=== PATIENT | female | born 1955 | race Caucasian/White ===

== ENCOUNTER → 2016-07-16 | Outpatient (CLI) | payer BC ==
[~2016-07-16] VITALS: Ht 167.6 cm; Wt 111.6 kg
[~2016-07-16] MED LIST: CATHETER FLUSH 10 ML SYR IV PRN; ENAL1TAB19 PO; PNT40TEC PO; REGADENOSON 0.4 MG/5 ML SYR (LEXISCAN) IV ONE; SERT50TA9 PO
--- OUTSIDE RECORDS SUMMARY | 2016-07-16 07:33 | XMS REPORT | Continuity of Care Document ---
Author Author [facility] Organization [facility] Address Unknown Phone Unavailable Allergies Active Description Code Type Severity Reaction Onset Reported/Identified Relationship to Patient Clinical Status Yes No Known Drug Allergies [id number] Drug Allergy Unknown N/ A 01/12/2013 Medications Problems Date Dx Coded Attending Type Code Diagnosis Diagnosed By 01/12/2013 PRIETO GUZMAN DO Ot 455.6 HEMORRHOIDS NOS 01/12/2013 PRIETO GUZMAN DO Ot 530.81 ESOPHAGEAL REFLUX 01/12/2013 PRIETO GUZMAN DO Ot 535.50 UNSP GASTRITIS GASTRODUODENITIS W/O ME 01/12/2013 PRIETO GUZMAN DO Ot 553.3 DIAPHRAGMATIC HERNIA 01/12/2013 PRIETO GUZMAN DO Ot 578.1 BLOOD IN STOOL 01/12/2013 PRIETO GUZMAN DO Ot V16.0 FAMILY HX-GI MALIGNANCY 08/22/2015 Ot V76.12 08/22/2015 PRIETO GUZMAN DO Ot V72.84 08/22/2015 PAYTON GHOSH MD Ot V76.12 08/23/2015 JORGE JOHNSON Ot R01.1 09/04/2015 JORGE JOHNSON Ot R01.1 09/11/2015 MEMO DAVISON MD Ot Z12.31 09/25/2015 MEMO DAVISON MD Ot Z12.31 ENCNTR SCREEN MAMMOGRAM FOR MALIGNANT NE 07/14/2016 Ot V76.12 OTH SCREEN MAMMO-MALIGN NEOPLASM OF DAVID 07/14/2016 PRIETO GUZMAN DO Ot V72.84 EXAM PRE-OPERATIVE NOS 07/14/2016 PAYTON GHOSH MD Ot V76.12 OTH SCREEN MAMMO-MALIGN NEOPLASM OF DAVID 07/14/2016 JORGE JOHNSON Ot R01.1 CARDIAC MURMUR, UNSPECIFIED 07/14/2016 MEMO DAVISON MD Ot Z12.31 ENCNTR SCREEN MAMMOGRAM FOR MALIGNANT NE Procedures Results Encounters ACCT No. Visit Date/Time Discharge Status Pt. Type Provider Facility Loc./Unit Complaint [id number] 01/16/2013 09:01:00 2012 23:59:59 CLS Outpatient PAYTON GHOSH MD [facility] RAD SCREENING [id number] 01/12/2013 10:50:00 2012 14:05:00 DIS Outpatient PRIETO GUZMAN DO [facility] SDC SCREENING/DIFFICULTY SWALLOWING [id number] 01/11/2013 07:24:00 2012 23:59:59 CLS Outpatient PRIETO GUZMAN DO [facility] PREOP SCREENING/DIFFICULTY SWALLOWING [id number] 07/16/2016 07:30:00 ACT Outpatient SHAUNA HANSON FACCEVERT FACP CCDS [facility] CARD CHEST DISCOMFORT [id number] 09/10/2015 09:44:00 ACT Outpatient MEMO DAVISON MD [facility] RAD SCREENING [id number] 08/22/2015 09:19:00 ACT Outpatient JORGE JOHNSON ICU SPECIALIST [facility] CARD HEART MURMUR [id number] 05/21/2011 14:11:00 Document Registration
[2016-07-16 09:05] VITALS: BP 140/95
[2016-07-16 09:31] VITALS: BP 150/91
[2016-07-16 09:33] VITALS: BP 148/88
--- NOTE | 2016-07-17 08:20 | STRESS TEST ---
PROCEDURE PHYSICIAN: EVERT CORTEZ RESTING AND POST REGADENOSON TECHNETIUM 99M TETROFOSMIN SPECT CT IMAGING DATE OF PROCEDURE: 07/16/2016 ORDERING PHYSICIAN: Dr. Cortez PRIMARY PHYSICIAN: Dr. Khan CLINICAL DIAGNOSIS: Chest discomfort Baseline images were carried out after injection of 10.72 mCi technetium 99m tetrofosmin. This was followed by 0.4 mg of regadenoson and 29.2 mCi of technetium 99m tetrofosmin for stress imaging. The electrocardiogram showed sinus rhythm with left bundle branch block and it did not change significantly with the regadenoson infusion. The patient tolerated the procedure well. She had some shortness of breath during the procedure which resolved shortly after adenosine infusion had been given. Review of images at rest and following stress, does not indicate any significant perfusion defects consistent with myocardial ischemia or infarction. Gated images show normal global left systolic function with normal regional wall motion. Left ventricular ejection fraction is calculated to be 65%. Left ventricular end-diastolic volume is 60 mL. TID is absent (1.08). CONCLUSIONS: 1. No evidence of any significant myocardial ischemia or infarction on this study. 2. Normal regional wall motion. 3. Normal global left ventricular systolic function with a calculated ejection fraction of 65%. 4. Normal left ventricular cavity size. Job ID: [id number] Dictated Date: 07/16/2016 12:37:47 Powerhouse Engineer Date: 07/17/2016 08:14:23 / monisha
== END ==
LOC: CARD 07:30
PROVIDERS: ATTEND Internal Medicine Cardiovascular Disease
DX: I44.69 Other fascicular block (principal); I10 Essential (primary) hypertension; E78.4 Other hyperlipidemia; R07.89 Other chest pain; E66.09 Other obesity due to excess calories
CPT/HCPCS: 78452; 93017

== ENCOUNTER → 2016-10-30 | Outpatient (CLI) | payer BC ==
[~2016-10-30] MED LIST changes: -CATHETER FLUSH 10 ML SYR IV PRN; -REGADENOSON 0.4 MG/5 ML SYR (LEXISCAN) IV ONE
--- NOTE | 2016-10-30 10:44 | Diagnostic Imaging Report ---
EXAMINATION: Left lower extremity duplex venous ultrasound. TECHNIQUE: DVT protocol. Multiple sonographic images with color Doppler and waveform interrogation were performed of the left lower extremity veins with compression and augmentation maneuvers. INDICATION: Left leg redness and pain. FINDINGS: The left lower extremity veins from the groin to below the knee veins were examined with normal color-flow, compressibility and waveform demonstrated. The great saphenous vein is patent. IMPRESSION: No evidence of DVT in the left lower extremity. Dictated by: Dictated on workstation # [id number]
== END ==
LOC: RAD 10:14
PROVIDERS: ATTEND Nurse Practitioner Family
DX: M79.662 Pain in left lower leg (principal)

== ENCOUNTER → 2018-12-01 | Outpatient (CLI) | payer MEDICARE, OTHER | LOC: CARD 10:54 | PROVIDERS: ATTEND Nurse Practitioner Family | DX: R01.1 Cardiac murmur, unspecified (principal); I35.0 Nonrheumatic aortic (valve) stenosis | CPT/HCPCS: 93306 ==

== ENCOUNTER 2018-12-29 09:53 | Outpatient (CLI) | payer MEDICARE, OTHER ==
[~2018-12-29] VITALS: Ht 167.6 cm; Wt 95.3 kg
[~2018-12-29 09:53] MED LIST changes: +ATOR10TA66 PO; +CHOL100045 PO; +ENAL1TAB8 PO; +OMEP20TA7 PO; +OMG1KC PO; +SERT100T8 PO; +UBID100C17 PO
== END 2018-12-29 10:24 | disposition home or self-care (01) ==
LOC: PREOP 09:53
PROVIDERS: ATTEND Surgery
DX: Z01.818 Encounter for other preprocedural examination (principal)

== ENCOUNTER 2019-01-24 06:58 | Day surgery (SDC) | payer MEDICARE, OTHER ==
[~2019-01-24] VITALS: Ht 167.6 cm; Wt 95.3 kg
[2019-01-24] VITALS (8 sets, daily range): BP systolic 95–140; BP diastolic 58–81
[~2019-01-24 06:58] MED LIST changes: +LACTATED RINGERS 1,000 ML IV ONE
[2019-01-24] MEDS ORDERED: PROPOFOL INJECTION 50 ML IV ONE (07:15)
[2019-01-24] MEDS ORDERED: LACTATED RINGERS 1,000 ML IV STA (07:25)
--- NOTE | 2019-01-24 08:33 | Discharge Inst-Simple/Standard ---
Discharge Inst-Standard Patient Instructions/Follow Up Plan of Care/Instructions/FU: repeat colonoscopy in 5 years, any issues before then be seen at that time. Activity as Tolerated: Yes Discharge Diet: Regular Diet (high fiber) PRIETO GUZMAN DO Jan 24, 2019 08:33
--- NOTE | 2019-01-24 11:01 | OPERATIVE REPORT ---
DATE OF SERVICE: 01/24/2019 PREOPERATIVE DIAGNOSIS: History of polyps, family history of colon cancer. POSTOPERATIVE DIAGNOSIS: Normal colon diverticulosis. PROCEDURE: Colonoscopy. SURGEON: Prieto Aragon DO ANESTHESIA: Per RETAIL LOSS PREVENTION INVESTIGATOR. ESTIMATED BLOOD LOSS: None. COMPLICATIONS: None. INDICATIONS: The patient is a 63-year-old female with family history of colon cancer and history of polyps. She understands risks and benefits of procedure and wished to proceed with procedure. Consent was signed and on the chart. DESCRIPTION OF PROCEDURE: The patient was taken to the endoscopy suite, placed in left lateral recumbent position. Timeout was performed. Digital rectal exam was performed. There were no palpable polyps, masses or ulcerations. Scope was inserted in the rectum, advanced all the way to the cecum with minimal difficulty. Prep was adequate. Scope was then slowly retracted back. There were no polyps, masses or ulcerations in the cecum, ascending, transverse, descending and sigmoid colon. A minimal amount of diverticulosis present in the sigmoid colon. Scope was continuously retracted back into the rectum, where it was also retroflexed noting no other pathology. Scope was returned to its normal position, slowly withdrawn until completely removed. The patient tolerated procedure well without any complications. She was taken to recovery room in stable condition. RECOMMENDATIONS: The patient recommended high fiber diet. She will need a repeat colonoscopy in 5 years. Any issues before that will be seen at that time. Job ID: [id number] DocumentID: [id number] Dictated Date: 01/24/2019 08:30:06 Automotive Refinish Technician Date: 01/24/2019 11:00:56 Dictated By: PRIETO ARAGON DO
== END 2019-01-24 09:35 | disposition home or self-care (01) ==
LOC: ENDO 06:58
PROVIDERS: ATTEND Surgery
DX: Z12.11 Encounter for screening for malignant neoplasm of colon (principal); K57.30 Diverticulosis of large intestine without perforation or abscess without bleeding; E78.5 Hyperlipidemia, unspecified; E66.9 Obesity, unspecified; I10 Essential (primary) hypertension; I44.7 Left bundle-branch block, unspecified; I77.9 Disorder of arteries and arterioles, unspecified; Z68.33 Body mass index [BMI] 33.0-33.9, adult; Z79.899 Other long term (current) drug therapy; Z86.010 Personal history of colon polyps; Z80.0 Family history of malignant neoplasm of digestive organs; Z82.3 Family history of stroke; Z82.49 Family history of ischemic heart disease and other diseases of the circulatory system

== ENCOUNTER → 2020-10-28 | Outpatient (CLI) | payer MEDICARE, OTHER ==
[~2020-10-28] MED LIST changes: +CATHETER FLUSH 10 ML SYR IV PRN; -LACTATED RINGERS 1,000 ML IV ONE; +REGADENOSON 0.4 MG/5 ML SYR (LEXISCAN) IV ONE; +SERT-414 PO; -SERT100T8 PO
[2020-10-28 12:05] VITALS: BP 149/89
--- NOTE | 2020-10-28 16:24 | Cardiology Stress Test Report ---
Stress Test Report Date of Procedure/Referring: Date of Procedure: October 28, 2020 PCP Filemon Almendarez MD Admitting Physician Kay Khan MD Indications: HTN Baseline Heart Rate: 66 Baseline Blood Pressure: Blood Pressure Systolic: 149 Blood Pressure Diastolic: 89 Baseline Vitals Vital Signs Date Time Temp Pulse Resp B/P (MAP) Pulse Ox O2 Delivery O2 Flow Rate FiO2 10/28/20 12:05 69 149/89 (109) 99 Baseline EKG: Baseline EKG: LBBB Summary After explaining the procedure to the patient, she signed a consent and then brought to the stress nuclear laboratory. Patient received 0.4 mg Lexiscan for stress test, ECG, heart rate and blood pressure were monitored continuously. Resting and stress dose of radio tracer were injected, imaging was acquired and reviewed in short axis, horizontal long axis and vertical long axis views. TID: 1.09 SSS: 0 SDS: 0 EF: 58 1. Patient tolerated Lexiscan well 2. Baseline left bundle branch block persisted during test 3. Breast attenuation with mild decreased uptake involving the anterior apical segment which is fixed, no significant ischemia or infarction was noted 4. Normal left ventricular size, EF 58% FILEMON ALMENDAREZ MD October 28, 2020 16:24
== END ==
LOC: CARD 10:12
PROVIDERS: ATTEND Internal Medicine Cardiovascular Disease
DX: I10 Essential (primary) hypertension (principal); I25.10 Atherosclerotic heart disease of native coronary artery without angina pectoris
CPT/HCPCS: 78452; 93017; A9502

== ENCOUNTER → 2020-10-29 | Outpatient (CLI) | payer MEDICARE, OTHER ==
[~2020-10-29] MED LIST changes: -CATHETER FLUSH 10 ML SYR IV PRN; -REGADENOSON 0.4 MG/5 ML SYR (LEXISCAN) IV ONE
== END ==
LOC: CARD 12:59
PROVIDERS: ATTEND Internal Medicine Cardiovascular Disease
DX: I08.0 Rheumatic disorders of both mitral and aortic valves (principal); I25.10 Atherosclerotic heart disease of native coronary artery without angina pectoris; I11.9 Hypertensive heart disease without heart failure
CPT/HCPCS: 93306

== ENCOUNTER 2020-12-13 05:42 | Outpatient (RCR) | payer MEDICARE ==
[~2020-12-13] VITALS: Ht 170.2 cm; Wt 101.6 kg
[~2020-12-13 05:42] MED LIST changes: +ACET-2650 PO; +ASPI-992 PO; +CHOL500037 PO
== END 2020-12-13 09:13 | disposition home or self-care (01) ==
LOC: PREOP 05:42
PROVIDERS: ATTEND Surgery
DX: Z01.812 Encounter for preprocedural laboratory examination (principal); K21.9 Gastro-esophageal reflux disease without esophagitis; Z20.822 Contact with and (suspected) exposure to COVID-19
CPT/HCPCS: 87635

== ENCOUNTER 2020-12-17 10:20 | Day surgery (SDC) | payer MEDICARE ==
[~2020-12-17] VITALS: Ht 170.2 cm; Wt 101.6 kg
[2020-12-17] VITALS (7 sets, daily range): BP systolic 124–141; BP diastolic 64–79
[2020-12-17] MEDS ORDERED: LACTATED RINGERS 1,000 ML IV STA (10:28)
[2020-12-17] MEDS ORDERED: LACTATED RINGERS 1,000 ML IV ONE (10:29)
[2020-12-17] MEDS ORDERED: HURRICAINE EXT TUBE (BENZOCAINE) XX PRN (10:30)
--- NOTE | 2020-12-17 10:59 | Progress Note-Pre Operative ---
Pre-Operative Progress Note H&P Reviewed The H&P was reviewed, patient examined and no changes noted. Date Seen by Provider: Dec 17, 2020 Time Seen by Provider: 10:59 Date H&P Reviewed: Dec 17, 2020 Time H&P Reviewed: 10:59 Pre-Operative Diagnosis: chest pain gerd PRIETO GUZMAN DO Dec 17, 2020 10:59
[2020-12-17] MEDS ORDERED: proPOfol 200 MG/20 ML (DIPRIVAN) VIAL IV ONE (12:18)
--- NOTE | 2020-12-17 12:55 | Anesthesia-General Post-Op ---
MAC Patient Condition Mental Status/LOC: Same as Preop Cardiovascular: Satisfactory Nausea/Vomiting: Absent Respiratory: Satisfactory Pain: Controlled Complications: Absent Post Op Complications Complications None Follow Up Care/Instructions Patient Instructions None needed. Anesthesiology Discharge Order Discharge Order Patient is doing well, no complaints, stable vital signs, no apparent adverse anesthesia problems. No complications reported per nursing. JIM SERRANO CRNA Dec 17, 2020 12:55
--- NOTE | 2020-12-17 12:58 | Progress Note-Post Operative ---
Post-Operative Progess Note Surgeon (s)/Steaming Cabinet Tender (s) Surgeon PRIETO GUZMAN DO Steaming Cabinet Tender: na Pre-Operative Diagnosis chest pain gerd Post-Operative Diagnosis small hiatal hernia, gastritis Procedure & Operative Findings Date of Procedure 12/17/20 Procedure Performed/Findings egd c biopsies Anesthesia Type per research dairy farm supervisor Estimated Blood Loss Estimated blood loss (mL): none Specimens/Packing Specimens Removed antrum, ge, mid esophagus PRIETO GUZMAN DO Dec 17, 2020 12:58
[2020-12-17] MEDS ORDERED: PANT40TA2 PO (12:59)
--- NOTE | 2020-12-17 13:00 | Discharge Inst-Simple/Standard ---
Discharge Inst-Standard Discharge Medications New, Converted or Re-Newed RX: Transmitted to Pharmacy Patient Instructions/Follow Up Plan of Care/Instructions/FU: 2-3 weeks Mahesh Activity as Tolerated: Yes Discharge Diet: Regular Diet PRIETO GUZMAN DO Dec 17, 2020 13:00
--- NOTE | 2020-12-17 17:03 | OPERATIVE REPORT ---
DATE OF SERVICE: 12/17/2020 PREOPERATIVE DIAGNOSES: Chest pain and gastroesophageal reflux disease. POSTOPERATIVE DIAGNOSES: Small hiatal hernia and gastritis. PROCEDURE: EGD with biopsies. SURGEON: Prieto Aragon DO ANESTHESIA: Per LEAD QUALITY CONTROL TECHNICIAN. ESTIMATED BLOOD LOSS: None. COMPLICATIONS: None. SPECIMENS: Antrum, GE and mid esophagus. INDICATIONS: The patient is a 65-year-old female with chest pain and GERD symptoms. She understands risks and benefits of procedure and wished to proceed with procedure. Consent was signed in the chart. DESCRIPTION OF PROCEDURE: The patient was taken to the endoscopy suite, placed in left lateral recumbent position. Timeout was performed. Scope was inserted in mouth, down the esophagus, stomach and into the duodenum without difficulty. There were no polyps, masses or ulcerations within the duodenum. Scope was slowly retracted back into the stomach where it was further insufflated. No polyps, masses or ulcerations. There were erythematous changes consistent with gastritis present. Biopsies were obtained. Scope was retroflexed noting a very small hiatal hernia. No other pathology. Scope was returned to its normal position. Biopsy of the GE junction was obtained. No polyps, masses or ulcerations. Scope was then continuously retracted back. Slight mucosal change in the mid esophagus, which biopsy was obtained. Scope was then slowly retracted back to completely remove, noting no other pathology. The patient tolerated procedure well without any complications. She was taken to recovery room in stable condition. RECOMMENDATIONS: The patient will stop omeprazole and start Protonix 40 mg daily. We will follow up on biopsies in about 2 weeks and see how she is doing and further recommendations pending biopsy results. Job ID: [id number] DocumentID: [id number] Dictated Date: 12/17/2020 13:03:31 Coffee Host Date: 12/17/2020 17:01:31 Dictated By: PRIETO ARAGON DO
== END 2020-12-17 13:55 | disposition home or self-care (01) ==
LOC: ENDO 10:20
PROVIDERS: ATTEND Surgery
DX: K44.9 Diaphragmatic hernia without obstruction or gangrene (principal); K29.70 Gastritis, unspecified, without bleeding; I10 Essential (primary) hypertension; Z79.899 Other long term (current) drug therapy

== ENCOUNTER → 2021-07-01 | Outpatient (CLI) | payer MEDICARE ==
[~2021-07-01] MED LIST changes: +PANT40TA2 PO
--- NOTE | 2021-07-01 14:25 | Diagnostic Imaging Report ---
INDICATION: Routine screening. COMPARISON is made with prior mammograms from 09/10/2015 and 01/16/2013. 2-D and 3-D bilateral screening mammography was performed with CAD. Both breasts are heterogeneously dense, limiting the sensitivity of mammography. Occasional benign calcifications are noted. Overall parenchymal pattern is stable. No mass or malignant-appearing microcalcifications are seen apart from a benign appearing nodule in the upper outer left breast posterior depth. Axillae are unremarkable. IMPRESSION: BI-RADS Category 2 No mammographic features suspicious for malignancy are identified. ACR BI-RADS Category 2: Benign findings. Result letter will be mailed to the patient. Note: At least 10% of breast cancer is not imaged by mammography. Dictated by: Dictated on workstation # [id number]
== END ==
LOC: RAD 07:41
PROVIDERS: ATTEND Nurse Practitioner Family
DX: Z12.31 Encounter for screening mammogram for malignant neoplasm of breast (principal)
CPT/HCPCS: 77063; 77067

== ENCOUNTER → 2022-04-23 | Outpatient (CLI) | payer MEDICARE ==
[~2022-04-23] MED LIST changes: +ENAL1TAB14 PO; -ENAL1TAB8 PO; +OMEP20TA56 PO; -OMEP20TA7 PO
== END ==
LOC: CARD 09:25
PROVIDERS: ATTEND Physician Assistant
DX: I11.9 Hypertensive heart disease without heart failure (principal); I08.0 Rheumatic disorders of both mitral and aortic valves
CPT/HCPCS: 93306